=== PATIENT | female | born 1975 | race Caucasian/White ===

== ENCOUNTER 2017-04-18 06:17 | Day surgery (SDC) | payer OTHER ==
[2017-04-17 09:44] VITALS: BMI 23.2
--- NOTE | 2017-04-17 18:24 | PREOP ---
DATE OF ADMISSION: 04/18/2017 ADMISSION DIAGNOSIS: Left parotid neoplasm. HISTORY OF PRESENT ILLNESS: This 42-year-old female has had a several year history of swelling of the left parotid gland. She initially noted this approximately 2015 and it has been variable in size. More recently it has been gradually increasing in size. Examination was consistent with a left parotid neoplasm. Fine needle aspiration biopsy is consistent with a benign mixed tumor. CT scan demonstrates a well-circumscribed nodule of the left parotid gland consistent with a left parotid neoplasm. She is now admitted for left parotidectomy with facial nerve dissection and preservation. PAST MEDICAL HISTORY: Primary medical doctor is Dr. Elie Garcia. The patient has had history of sinusitis, gastroesophageal reflux disease, mononucleosis and tonsillitis. She has had previous surgery including ureteral stent by Dr. Alcantar, tubal ligation and tonsillectomy. ANESTHESIA PROBLEMS: None. BLEEDING HISTORY: Negative. FAMILY HISTORY: Negative for bleeding or anesthesia problems. EXAM:General: The patient is a well-developed female in no acute distress. HEENT: Head is normal. Eyes are clear. Ears are unremarkable. The oral cavity and oropharynx are clear. Neck: Shows a left parotid neoplasm which is firm, mobile and nontender. There is normal skin overlying this lesion. DATA: Preoperative labs are pending. 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 CT scan of the neck with contrast [facility] at [facility] on April 12, 2017: There is a well-defined ovoid homogeneous mass of the left parotid gland measuring 2.1 cm in greatest dimension. It enhances homogeneously and there is no additional mass. There are no enlarged cervical nodes and no evidence of invasion. 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 PLAN: Left superficial parotidectomy with facial nerve dissection and preservation. INFORMED CONSENT: The patient understands the indications, alternatives, nature of risks and benefits of proposed surgery, potential complications including, but not limited to, anesthesia, bleeding, infection, scar, numbness, recurrence, facial weakness or paralysis, cry syndrome (respiratory sweating) or fluid buildup in the tissue were discussed in detail. She understands and accepts these risks and wishes to proceed with surgery. Questions were answered fully. LAMAR PATRICIO M.D. AISHA/[id number] MTDD
[2017-04-18 07:10] LABS: URINE APPEARANCE SLCLOUDY; URINE BILIRUBIN NEGATIVE (NEGATIVE); URINE BLOOD NEGATIVE (NEGATIVE); URINE COLOR YELLOW; URINE GLUCOSE (UA) NEGATIVE (NEGATIVE); URINE KETONE NEGATIVE (NEGATIVE); URINE NITRITE NEGATIVE (NEGATIVE); URINE PROTEIN NEGATIVE (NEGATIVE); URINE UROBILINOGEN NEGATIVE mg/dL (0.2-1.0)
[2017-04-18 07:14] LABS: URINE LEUK ESTERASE 2+ (NEGATIVE)
--- NOTE | 2017-04-18 07:30 | HP ---
History & Physical Update - History History: No Change - Physical Physical: No Change - Assessment Assessment: No Change - Plan Plan: No Change
--- NOTE | 2017-04-18 07:49 | HP ---
History & Physical Update - History History: No Change - Physical Physical: No Change - Assessment Assessment: No Change - Plan Plan: No Change
[2017-04-18] MEDS ORDERED: MIDAZOLAM HCL 2 MG/2 ML SINGLE DOSE VIAL ONE (07:54)
[2017-04-18] MEDS ORDERED: fentaNYL CITRATE 250 MCG/5 ML VIAL ONE (07:54)
[2017-04-18] MEDS ORDERED: PROPOFOL 20 ML ONE ×2 (07:54)
[2017-04-18 07:59] LABS: EPI CELLS FEW /HPF (FEW); URINE BACTERIA RARE /hpf (NONE SEEN); URINE MUCUS RARE
[2017-04-18] MEDS ORDERED: ONDANSETRON 4 MG/2 ML VIAL IVPUSH PRN (09:21)
[2017-04-18] MEDS ORDERED: oxyCODONE HCL 5 MG TABLET PO PRN (09:21)
[2017-04-18] MEDS ORDERED: LACTATED RINGERS SOLUTION 1,000 ML IV SCH (09:30)
[2017-04-18] MEDS ORDERED: ACETAMINOPHEN 325 MG TABLET (FP) PO PRN (09:56)
--- NOTE | 2017-04-18 09:58 | SURG ---
Surgery Green Meat Packer Note Green Meat Packer: Marialuisa Willis PA-C Date of Service: 04/18/17 Diagnosis: Left parotid neoplasm Procedure: Left parotidectomy I was present for the entirety of the operative procedure. For further detail, please refer to operative report. Visit type - Case Type Case Type: Scheduled Admission - Emergency Emergency Visit: No - New patient This patient is new to me today: Yes Date on this admission: 04/18/17
--- NOTE | 2017-04-18 10:01 | OP ---
Operative Note - Note: Operative Date: 04/18/17 (12822) Pre-Operative Diagnosis: left parotid neoplasm Operation: left parotidectomy Findings: left parotid neoplasm ~2 cm superficial lobe facial nerve function intact in PACU Post-Operative Diagnosis: Same as Pre-op Surgeon: Erick Mcmahon Director Electronics: Marialuisa Willis Anesthesiologist/SHOT LIGHTER: Ashley Dominguez Anesthesia: General Specimens Removed: left parotid neoplasm Estimated Blood Loss (mls): 5 Blood Volume Replaced (mls): 0 Operative Report Dictated: Yes
[2017-04-18] MEDS ORDERED: RANITIDINE HCL 50 MG/2 ML VIAL ONE (11:04)
--- NOTE | 2017-04-18 13:02 | OP ---
DATE OF OPERATION: 04/18/2017 PREOPERATIVE DIAGNOSIS: Left parotid neoplasm. POSTOPERATIVE DIAGNOSIS: Left parotid neoplasm. PROCEDURE: Left parotidectomy. SURGEON: Erick Mcmahon MD TELEPHONY ENGINEER: REYNA Zelaya ENGRAVER BLOCK: Ashley Dominguez CRNA ANESTHESIA: General via endotracheal tube. INDICATIONS: This 42-year-old female has had a several-year history of a swelling of the left face and jaw area. On exam, she has a 2- to 2.5-cm ovoid firm mobile lesion consistent with a parotid neoplasm. Fine-needle aspiration biopsy has shown benign tissue consistent with a pleomorphic adenoma. CT scan shows a well- circumscribed 2.1-cm superficial mass. There are no enlarged lymph nodes and no evidence of invasion. She is now brought to surgery for treatment. FINDINGS: A 2-cm well-circumscribed parotid gland neoplasm. PROCEDURE: Patient was brought to the operating room and placed on the operating table in the supine position. General endotracheal anesthesia was induced to a satisfactory level. She was prepped and draped in the usual fashion for surgery. With the neck extended and rotated, the left parotid neoplasm was easily seen and palpated. A modified Jhon incision was then fashioned beginning anterior to the tragus coursing anterior to the lobule and then curving beneath the lobule, curving gently in the posterior neck into an existing skin fold in the neck. This was then created and carried down through skin and subcutaneous tissue. Hemostasis was achieved with electrocautery. The lobule was then retracted posteriorly. Using skin hooks and mosquito scissors, a skin flap was elevated anteriorly in a fat-up/fat -down plane. This was carried forward to go past the anterior border of the lesion. The level of the lesion was at the level of the lobule, inferior to the tragus. It was quite superficial. Because it was also somewhat anterior, the lesion was dissected directly. The posterior border was from the surrounding tissue. Using only blunt dissection, including a peanut dissector, the lesion was removed with some normal surrounding tissue from the superficial lobe of the left parotid gland. There were no vessels encountered. Mild spot bleeding was addressed with bipolar cauterization at a low setting. The superficial aspect of the lesion was then circumferentially dissected and then dissection was complete. It was removed intact with a cuff of tissue and sent to Pathology for routine studies. The surgical bed was dry. The wound was then irrigated with saline. Some absorbable sutures were used to close the parotid fascia over the space that held the tumor , creating a more even and flat fascial layer. The skin flap was then returned to its ak chin position. Interrupted absorbable sutures were then used to secure the flap along its entirety. Special care was taken to realign the ear lobule back in its ak chin position. The skin was then closed using a running 6-0 nylon suture for the preauricular portion and interrupted 5-0 nylons for the cervical portion of the wound. Xeroform dressing was placed. A dry sterile pressure dressing was then placed and secured with 3-0 roll gauze going over the head and around the neck in order to apply gentle pressure to the left face. Patient tolerated this procedure well. She was then awakened from general anesthesia and transferred to the PACU in stable condition. Estimated blood loss was 5 mL. She received crystalloid at the end of the procedure. There were no complications. The left parotid neoplasm was sent to Pathology for routine studies. Her facial nerve function was intact in the PACU. ERICK MCMAHON M.D. [id number] MTDD
--- NOTE | 2017-04-18 19:43 | PN ---
Progress Note (short form) - Note Progress Note: ENT Post-op check awake, alert, out of bed, has voided, ate twice mild pain no nausea had c/o tightness of pressure dressing, modified to reduce tightness VSS NAD dressing dry and intact wound flat, no hematoma, no bleeding facial nerve function intact, symmetric Impression: stable s/p left parotidectomy GERD mild throat discomfort, likely from ETT Plan continue postop care ranitidine 150 mg qHS Cepacol prn throat discomfort reassess in AM, if doing well then discharge home in morning.
[2017-04-18] MEDS ORDERED: BENZOCAINE/MENTH/CETYLPYRD CL 1 EACH LOZENGE MM PRN (19:44)
[2017-04-18] MEDS ORDERED: RANITIDINE HCL 150 MG TABLET (FP) PO SCH (22:00)
--- NOTE | 2017-04-19 07:59 | PN ---
Progress Note (short form) - Note Progress Note: ENT POD1 s/p left parotidectomy comfortable night, mild pain has been OOB, no nausea, ate solids PE NAD wound flat, suture line intact, no hematoma or drainage new dressing placed facial nerve function intact Data: pathology pending Impression: doing well after left parotidectomy Plan: discharge home today wound care reviewed home meds rx to pharmacy to office Sunday04-23-17 for postop visit and care Erick Mcmahon MD
[2017-04-19 09:21] VITALS: BP 98/62; PULSE 62; TEMP 98
--- NOTE | 2017-04-19 17:55 | PATH ---
Surgical Pathology Report Patient Name: MARIE ROBB [facility]. Rec. #: [id number] /Age/Gender: 1975 (Age: 42) / F Account: [id number] Location: AMBULATORY SURG Taken: 04/18/2017 Received: 04/18/2017 Reported: 04/19/2017 Physicians: Erick Mcmahon M.D. Specimen(s) Received LEFT PAROTID NEOPLASM Clinical History Benign neoplasm of parotid gland Final Diagnosis PAROTID, LEFT, NEOPLASM, PAROTIDECTOMY: PLEOMORPHIC ADENOMA. NEOPLASM MEASURES 2.2 CM (GROSS MEASUREMENT). SURGICAL MARGINS ARE NEGATIVE. SCANT RESIDUAL PAROTID TISSUE IDENTIFIED. Electronically Signed Michelle Moran M.D. Gross Description Received in formalin labeled "left parotid neoplasm," is a 2.2 x 2.0 x 1.4 cm pink-mcelroy, rubbery, unoriented, encapsulated soft tissue mass. The outer surface is smooth. Sectioning reveals homogeneous mcelroy, smooth, solid parenchyma. The specimen is inked blue, serially sectioned and entirely and sequentially submitted in 6 cassettes. /04/18/2017 [facility]04/18/2017
== END 2017-04-19 10:05 | disposition home or self-care (01) ==
LOC: JASUSAT 06:17 → J6S 12:47 → JASUSAT 04-19 10:05
PROVIDERS: ATTEND Otolaryngology
PROC: 0CTC0ZZ Resection of Left Parotid Duct, Open Approach (ICD-10-PCS; principal; 2017-04-18 08:00)
DX: D11.0 Benign neoplasm of parotid gland (principal)
CPT/HCPCS: 81003; 81015; 84703; 88307-TC

== ENCOUNTER 2021-06-23 04:15 | Day surgery (SDC) | payer OTHER ==
[2021-06-21 12:41] VITALS: BMI 26.2
[2021-06-23] MEDS ORDERED: MIDAZOLAM HCL 2 MG/2 ML SINGLE DOSE VIAL ONE (13:00)
[2021-06-23] MEDS ORDERED: PROPOFOL 20 ML ONE ×2 (13:00)
[2021-06-23] MEDS ORDERED: IBUPROFEN 800 MG/8 ML IJ IVPB PRN (14:33)
[2021-06-23] MEDS ORDERED: IBUPROFEN 600 MG TABLET (FP) PO PRN (14:33)
[2021-06-23] MEDS ORDERED: oxyCODONE HCL 5 MG TABLET PO PRN (14:33)
[2021-06-23] MEDS ORDERED: ONDANSETRON 4 MG/2 ML VIAL IVPUSH PRN (14:33)
[2021-06-23] MEDS ORDERED: ELECTROLYTE-148 SOLN 1,000 ML IV SCH (14:45)
[2021-06-23] MEDS ORDERED: LACTATED RINGERS SOLUTION 1,000 ML IV SCH (15:00)
[2021-06-23 18:19] VITALS: BP 96/48; PULSE 51; TEMP 97.6
== END 2021-06-23 18:33 | disposition home or self-care (01) ==
LOC: JASU-SURG 04:15
PROVIDERS: ATTEND Obstetrics & Gynecology
PROC: 0UB98ZX Excision of Uterus, Via Natural or Artificial Opening Endoscopic, Diagnostic (ICD-10-PCS; 2021-06-23)
PROC: 0UDB7ZZ Extraction of Endometrium, Via Natural or Artificial Opening (ICD-10-PCS; 2021-06-23)
PROC: 0UB98ZZ Excision of Uterus, Via Natural or Artificial Opening Endoscopic (ICD-10-PCS; principal; 2021-06-23 14:00)
DX: N93.9 Abnormal uterine and vaginal bleeding, unspecified (principal); N84.0 Polyp of corpus uteri; D25.0 Submucous leiomyoma of uterus
CPT/HCPCS: 88305-TC; 94760